=== PATIENT | female | born 1960 | race African-American/Black ===

== ENCOUNTER 2023-02-17 09:51 | Emergency (ER) | payer MEDICAID, OTHER ==
[~2023-02-17] VITALS: Ht 165.1 cm; Wt 61.2 kg
[2023-02-17 10:12] VITALS: BP 99/62; TEMP 98
[2023-02-17] MEDS ORDERED: BENZ-13 PO (13:21)
[2023-02-17] MEDS ORDERED: AMOX875T2 PO (13:21)
[2023-02-17] MEDS ORDERED: ALBU18HF2 INH (13:21)
[2023-02-17 13:39] VITALS: O2SAT 97
== END 2023-02-17 13:40 | disposition home or self-care (01) ==
LOC: ER 09:57
DX: J18.9 Pneumonia, unspecified organism (principal); M79.10 Myalgia, unspecified site; R05.9 Cough, unspecified; E03.9 Hypothyroidism, unspecified; Z79.899 Other long term (current) drug therapy; Z98.890 Other specified postprocedural states; Z20.822 Contact with and (suspected) exposure to COVID-19
CPT/HCPCS: 99284; 71045; 87426; 87804 ×2; C9803

== ENCOUNTER 2023-08-23 20:08 | Emergency (ER) | payer OTHER ==
[~2023-08-23] VITALS: Ht 162.6 cm; Wt 63.5 kg
[~2023-08-23 20:08] MED LIST: ALBU18HF2 INH; AMOX875T2 PO; BENZ-13 PO
[2023-08-23] MEDS ORDERED: KETOROLAC TROMETHAMINE INJ 30 MG/ML VIAL ONE (20:54)
[2023-08-23] MEDS ORDERED: METHOCARBAMOL (500MG) 500 MG TABLET ONE (20:54)
[2023-08-23] MEDS: METHOCARBAMOL (500MG) 500 MG TABLET PO ONE (21:02)
[2023-08-23] MEDS: KETOROLAC TROMETHAMINE INJ 30 MG/ML VIAL IM ONE (21:02)
[2023-08-23] MEDS ORDERED: METH-647 PO (21:42)
[2023-08-23] MEDS ORDERED: IBUP-1957 PO (21:42)
[2023-08-23 22:31] VITALS: BP 144/84; TEMP 98.1; O2SAT 100
== END 2023-08-23 22:38 | disposition home or self-care (01) ==
LOC: ER 20:19
DX: M54.40 Lumbago with sciatica, unspecified side (principal); E03.9 Hypothyroidism, unspecified; Z98.890 Other specified postprocedural states; Z79.899 Other long term (current) drug therapy
CPT/HCPCS: 99285; 72131; 96372; J1885

== ENCOUNTER 2023-08-29 12:36 | Emergency (ER) | payer OTHER ==
[~2023-08-29] VITALS: Ht 165.1 cm; Wt 62.6 kg
[~2023-08-29 12:36] MED LIST changes: +IBUP-1957 PO; +METH-647 PO
[2023-08-29] MEDS ORDERED: DIAZ5TAB PO (13:46)
[2023-08-29] MEDS ORDERED: LIDO30AD10 TP (13:46)
[2023-08-29] MEDS ORDERED: LIDOCAINE 5% (PATCH) 1 EA PATCH TP ONE (14:14)
[2023-08-29] MEDS: LIDOCAINE 5% (PATCH) 1 EA PATCH TP SCH (14:18)
[2023-08-29 14:22] VITALS: BP 124/72; TEMP 98.8; O2SAT 100
== END 2023-08-29 14:23 | disposition home or self-care (01) ==
LOC: ER 12:36
DX: G89.29 Other chronic pain (principal); M54.50 Low back pain, unspecified; E05.90 Thyrotoxicosis, unspecified without thyrotoxic crisis or storm